=== PATIENT | female | born 1975 | race Two or more races ===

== ENCOUNTER 2022-04-15 13:48 | Emergency (ER) | payer OTHER ==
[~2022-04-15] VITALS: Ht 160 cm; Wt 52.6 kg
[~2022-04-15 13:48] MED LIST: NABUMETONE750 MG PO; NORFLEX100MG PO
[2022-04-15] MEDS ORDERED: ZOLOFT100 MG PO (16:36)
[2022-04-15] MEDS ORDERED: BUSPIRONE HCL30 MG (16:36)
== END 2022-04-15 21:46 | disposition home or self-care (01) ==
LOC: ER 13:48
DX: R10.32 Left lower quadrant pain (principal); R10.31 Right lower quadrant pain